=== PATIENT | male | born 1990 | race Two or more races ===

== ENCOUNTER 2025-09-17 20:34 | Emergency (ER) | payer MEDICAID, OTHER ==
[~2025-09-17] VITALS: Ht 175.3 cm; Wt 89.5 kg
--- NOTE | 2025-09-17 22:57 | DVH ---
CLINICAL HISTORY: Left lower extremity pain TECHNIQUE: Color and duplex doppler imaging of the left lower extremity veins was performed. Vessel compression if possible was also performed. WID: COMPARISON: None FINDINGS: Left common femoral vein: Normal compressibility and flow. Left femoral vein: Normal compressibility and flow. Left popliteal vein: Normal compressibility and flow. IMPRESSION: 1. NO SONOGRAPHIC EVIDENCE FOR DEEP VENOUS THROMBOSIS IN THE LEFT LOWER EXTREMITY VEINS.
--- NOTE | 2025-09-18 00:25 | DVH ---
EXAM: XY L TIB FIB XRAY REASON FOR EXAM: Pain, swelling TECHNIQUE: 2 views of the left tibia/fibula COMPARISON: None FINDINGS/IMPRESSION: No acute fracture or dislocation. If clinical symptoms persist, a repeat radiograph may be obtained in 10 - 14 days to better visualize a fracture line.
--- NOTE | 2025-09-18 00:38 | ED.PDOC ---
History of Present Illness HPI Comments 35-year-old male who presents with chief complaint of left, lower leg pain, redness, and swelling. Patient reports onset of symptoms, yesterday morning. 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 No relief or improvement with [id number] cream medication. Denies any recent trauma or injury or history of similar events in the past. Denies any numbness, tingling, weakness, or further acute symptoms. History of unrepaired, torn left meniscus. REVIEW OF SYSTEMS: General: No fever, no chills, or fatigue HEENT: No sore throat, no earache, no congestion, no neck pain. Cardiac: No chest pain. No palpitations. Lungs: No shortness of breath, no cough. GI: No nausea, no vomiting, no diarrhea, no constipation, no abdominal pain : No dysuria, frequency, or urgency. No hematuria. Musculoskeletal: Left, lower leg pain and swelling. Skin: Blood, lower leg redness. No rash, no itching. Neuro: No headache, no dizziness, no weakness (And as stated in HPI) PHYSICAL EXAM: General: Awake, alert and oriented. No acute distress. Skin: Skin in warm, dry and intact. Appropriate color for ethnicity. HEENT: The head is normocephalic and atraumatic. Conjunctivae are clear without exudates or hemorrhage. Sclera is non-icteric. Eyelids are normal in appearance without swelling or lesions. Oral mucosa is pink and moist Neck: The neck is supple with normal range of motion. No JVD. Cardiac: Heart rate and rhythm are normal. No murmurs, gallops, or rubs are auscultated. Respiratory: No signs of respiratory distress. Extremities: Erythema on the distal left anterior calf; tenderness is swelling to the anterior calf, tenderness behind the left knee; mild swelling to the left calf. Neurological: The patient is awake, alert and oriented to person, place, and time with normal speech. Speech is clear. There is no facial asymmetry. Psychiatric: Appropriate mood and affect. Good judgement and insight. Chief Complaint: Lower Extremity Time Seen by MD: 21:55 Reviewed Notes: Nurses Notes, Medications, Allergies Home Meds Active Scripts Ibuprofen (Ibuprofen) 600 Mg Tab, 1 TAB PO TID, #15 TAB Prov:ADELINA PERERA MD 09/18/25 Cephalexin Monohydrate (Cephalexin) 500 Mg Tab, 1 TAB PO BID for 7 Days, #14 TAB Prov:ADELINA PERERA MD 09/18/25 Information Source: Patient Mode of Arrival: Ambulatory Severity: Moderate Timing: Hours Duration: Since onset Prehospital treatment: Treatment (See HPI) Past Medical History Past Medical History (Other): History of unrepaired, torn left meniscus Surgical History: Appendectomy Social History Smoker: Non-Smoker Alcohol: Denies ETOH Use Drugs: Denies Drug Use Lives In: Home Was a procedure done? Was a procedure done?: No Differential Dx Considerations may include: Differential diagnosis includes but not limited to cellulitis, contact dermatitis, urticaria, fracture, sprain, strain, contusions, among others X-Ray, Labs, Meds, VS Vital Signs Date Time Temp Pulse Resp B/P (MAP) Pulse Ox O2 Delivery O2 Flow Rate FiO2 09/18/25 02:34 97.9 57 20 128/77 (94) 99 97.9 09/18/25 02:34 57 20 98 Room Air 09/17/25 20:36 97.9 82 18 141/94 96 97.9 Current Medications Medications (Trade) Dose Ordered Sig/Nima Route Start Time Stop Time Status Last Admin Ketorolac Tromethamine (Toradol Injection) 30 mg ONCE ONCE IM 09/17/25 23:00 09/17/25 23:01 DC 09/18/25 01:40 Tramadol HCl (Ultram) 50 mg ONCE ONCE PO 09/17/25 23:00 09/17/25 23:01 DC 09/18/25 01:38 Acetaminophen (Tylenol Tablet) 650 mg ONCE ONCE PO 09/17/25 23:00 09/17/25 23:01 DC 09/18/25 01:40 [place] [address] Ph: [phone] DIAGNOSTIC IMAGING Diagnostic Imaging Report : [id number] Signed PATIENT: MELANIE BRIONES ACCT: [id number] UNIT: [id number] : 1990 LOC: ER ROOM / BED: / AGE / SEX: 35 / M ADM STATUS: REG ER SERVICE 52 ORDERING PHYSICIAN: ADELINA PERERA MD PROCEDURE(s): LTBFB - L TIB FIB XRAY REASON: Pain, swelling ORDER NUMBER(s): [id number], ACCESSION NUMBER(s): [id number] EXAM: XY L TIB FIB XRAY REASON FOR EXAM: Pain, swelling TECHNIQUE: 2 views of the left tibia/fibula COMPARISON: None FINDINGS/IMPRESSION: No acute fracture or dislocation. If clinical symptoms persist, a repeat radiograph may be obtained in 10 - 14 days to better visualize a fracture line. ATED BY: BONI YUSUF MD DICTATED DATE/TIME: 09/18/2522 SIGNED BY: BONI YUSUF MD SIGNED DATE/TIME: 09/18/2522 CC: [place] [address] Ph: [phone] DIAGNOSTIC IMAGING Diagnostic Imaging Report : [id number] Signed PATIENT: MELANIE BRIONES ACCT: [id number] UNIT: [id number] : 1990 LOC: ER ROOM / BED: / AGE / SEX: 35 / M ADM STATUS: REG ER SERVICE 54 ORDERING PHYSICIAN: ADELINA PERERA MD PROCEDURE(s): LLDVT - LT Lower DVT REASON: Left lower extremity pain ORDER NUMBER(s): [id number], ACCESSION NUMBER(s): [id number] CLINICAL HISTORY: Left lower extremity pain TECHNIQUE: Color and duplex doppler imaging of the left lower extremity veins was performed. Vessel compression if possible was also performed. WID: COMPARISON: None FINDINGS: Left common femoral vein: Normal compressibility and flow. Left femoral vein: Normal compressibility and flow. Left popliteal vein: Normal compressibility and flow. IMPRESSION: 1. NO SONOGRAPHIC EVIDENCE FOR DEEP VENOUS THROMBOSIS IN THE LEFT LOWER EXTREMITY VEINS. ATED BY: SHAUNNA ATKINS MD DICTATED DATE/TIME: 09/17/252253 SIGNED BY: SHAUNNA ATKINS MD SIGNED DATE/TIME: 09/17/252253 CC: Time of 1ST Reevaluation: 00:36 Reevaluation 1ST: Unchanged Patient Education/Counseling: Need For Follow Up Family Education/Counseling: No Family Present SEPSIS Sepsis Screen Date sepsis recognized/suspect: Sep 17, 2025 Time Sepsis recognized/suspect: 2040 Recent Procedure: No On Antibiotic Therapy: No Respiratory Rate >20: No Heart Rate >90: No Temp<36 C (96.8 F) or >38.3 C: No SBP <90 or MAP <65 mmHG: No New Acute Mental Status Change: No Is the patient on CPAP, BIPAP,: No Physician Orders Lt Lower Dvt (09/17/25 21:55) L Tib Fib Xray (09/17/25 22:53) Vital Signs Date Time Temp Pulse Resp B/P (MAP) Pulse Ox O2 Delivery O2 Flow Rate FiO2 09/18/25 02:34 97.9 57 20 128/77 (94) 99 97.9 09/18/25 02:34 57 20 98 Room Air 09/17/25 20:36 97.9 82 18 141/94 96 97.9 Medications Medications Dose Ordered Sig/Nima Route Start Time Stop Time Status Last Admin Dose Admin Acetaminophen 650 mg ONCE ONCE PO 09/17/25 23:00 09/17/25 23:01 DC 09/18/25 01:40 Ketorolac Tromethamine 30 mg ONCE ONCE IM 09/17/25 23:00 09/17/25 23:01 DC 09/18/25 01:40 Tramadol HCl 50 mg ONCE ONCE PO 09/17/25 23:00 09/17/25 23:01 DC 09/18/25 01:38 Departure 1 Departure Time of Disposition: 01:05 Impression: Primary Impression: Cellulitis Disposition: 01 HOME / SELF CARE / HOMELESS Condition: Stable Additional Instructions: ED DISCHARGE INSTRUCTIONS Instructions: Please read all instructions provided in this packet carefully. Although you have been discharged from the Emergency Department, this does not mean that you have a "clean bill of health". No definitive diagnosis for your symptoms has been made today. It is possible that you are in the process of developing a serious illness. This is why you must return to the ED without fail if any new or worsening symptoms (especially if your symptoms include chest pain, trouble breathing, abdominal pain, fever, headache, confusion, trouble seeing, or trouble walking) It is also very important that you see a primary care provider (PCP) within the next 3-5 days to follow up especially if her symptoms do not improve. If you are unable to get an appointment, return to the ED for re-evaluation. e-Prescriptions Ibuprofen (Ibuprofen) 600 Mg Tab 1 TAB PO TID, #15 TAB Prov: ADELINA PERERA MD 09/18/25 Cephalexin Monohydrate (Cephalexin) 500 Mg Tab 1 TAB PO BID for 7 Days, #14 TAB Prov: ADELINA PERERA MD 09/18/25 Discharged With: Self Comments MDM: Patient well-appearing, nontoxic. Advised prompt follow-up with PCP, return to the ED with any new, worsening or concerning symptoms. Extensive evaluation was performed in attempt to identify or rule out: (See differential diagnosis section) The following tests were ordered, and results were reviewed by me and discussed with patient: (See diagnostic results section) I reviewed and agreed with the following test results read by other providers: Left tibia/fibula x-ray, left lower extremity DVT ultrasound Decision regarding hospitalization or escalation of hospital level of care: Ris ks and benefits of admission for further treatment of patient's condition was considered however due to patient's stable condition patient will be discharged to follow up closely or return to care for worsening of condition or inability to follow up. Critical Care Note Critical Care Time?: No Stability Stability form required: No Heart Score Heart Score: Heart Score Response (Comments) Value History N/A 0 EKG N/A 0 Age N/A 0 Risk Factors N/A 0 Troponin N/A 0 Total 0 I personally scribed for ADELINA PERERA MD ([employer]) on 09/18/25 at 00:38. Electronically submitted by Juan Deluca ([email or web address]). I personally scribed for ADELINA PERERA MD ([email or web address]) on 09/18/25 at 01:44. Electronically submitted by Juan Deluca ([email or web address]). ADELINA PERERA MD Sep 18, 2025 00:38
[2025-09-18] MEDS ORDERED: IBUP-1454 PO (01:07)
[2025-09-18] MEDS ORDERED: CEPH500T PO (01:07)
[2025-09-18] MEDS: ACETAMINOPHEN 325 MG TAB PO ONE (01:40)
[2025-09-18] MEDS: KETOROLAC TROMETH 30 MG/ML 1ML VIAL IM ONE (01:40)
[2025-09-18 02:34] VITALS: BP 128/77; PULSE 57; RESP 20; TEMP 97.9; O2SAT 98
== END 2025-09-18 02:37 | disposition home or self-care (01) ==
LOC: ER 20:34
DX: L03.90 Cellulitis, unspecified (principal); Z90.49 Acquired absence of other specified parts of digestive tract; Z79.899 Other long term (current) drug therapy
CPT/HCPCS: 73590; 93971; 96372; 99285; J1885